=== PATIENT | male | born 1960 | race Caucasian/White ===

== ENCOUNTER → 2016-12-11 | Outpatient (REF) | payer BC ==
[2016-12-11 12:57] LABS: URIC ACID 6.4 MG/DL (3.5-7.2)
== END ==
LOC: M LAB REF 12:16
PROVIDERS: ATTEND Internal Medicine
DX: M10.9 Gout, unspecified (principal); Z98.84 Bariatric surgery status

== ENCOUNTER → 2017-10-26 | Outpatient (CLI) | payer BC | LOC: M WUC 11:50 | DX: S16.1XXA Strain of muscle, fascia and tendon at neck level, initial encounter (principal); X58.XXXA Exposure to other specified factors, initial encounter; Y92.89 Other specified places as the place of occurrence of the external cause | CPT/HCPCS: 72052 ==

== ENCOUNTER → 2018-08-19 | Outpatient (CLI) | payer BC | LOC: M WUC 11:50 | DX: M19.011 Primary osteoarthritis, right shoulder (principal); M25.711 Osteophyte, right shoulder; M25.511 Pain in right shoulder | CPT/HCPCS: 73030 ==

== ENCOUNTER → 2018-08-20 | Outpatient (CLI) | payer BC | LOC: M WUC 11:46 | DX: M50.322 Other cervical disc degeneration at C5-C6 level (principal); M50.323 Other cervical disc degeneration at C6-C7 level; M25.78 Osteophyte, vertebrae; M79.601 Pain in right arm; R20.0 Anesthesia of skin | CPT/HCPCS: 72052 ==

== ENCOUNTER → 2019-01-03 | Outpatient (REF) | payer BC ==
[2019-01-03 12:25] LABS: FERRITIN 139 NG/ML (26-388)
[2019-01-03 14:19] LABS: VITAMIN B12 LEVEL 767 PG/ML
[2019-01-03 14:20] LABS: FOLATE > 24.0 NG/ML
== END ==
LOC: M LAB REF 11:49
PROVIDERS: ATTEND Internal Medicine
DX: Z98.84 Bariatric surgery status (principal)

== ENCOUNTER → 2019-07-08 | Outpatient (REF) | payer BC | LOC: M LAB REF 12:28 | PROVIDERS: ATTEND Internal Medicine | DX: M10.9 Gout, unspecified (principal) ==

== ENCOUNTER → 2020-01-06 | Outpatient (REF) | payer BC ==
[2020-01-06 12:06] LABS: URIC ACID 7.6 MG/DL (3.5-7.2)
[2020-01-06 12:14] LABS: FOLATE 20.8 NG/ML
== END ==
LOC: M LAB REF 11:29
PROVIDERS: ATTEND Internal Medicine
DX: Z98.84 Bariatric surgery status (principal); M10.9 Gout, unspecified

== ENCOUNTER → 2021-01-08 | Outpatient (REF) | payer BC ==
[2021-01-08 17:53] LABS: URIC ACID 9.3 MG/DL (3.5-7.2)
[2021-01-08 18:02] LABS: VITAMIN B12 LEVEL 1041 PG/ML
[2021-01-08 18:04] LABS: FOLATE > 24.0 NG/ML
== END ==
LOC: M LAB REF 16:20
PROVIDERS: ATTEND Internal Medicine
DX: M10.9 Gout, unspecified (principal); Z98.84 Bariatric surgery status

== ENCOUNTER → 2021-04-22 | Outpatient (REF) | payer BC | LOC: M LAB REF 11:20 | PROVIDERS: ATTEND Internal Medicine | DX: M10.9 Gout, unspecified (principal) ==

== ENCOUNTER → 2021-05-12 | Outpatient (CLI) | payer BC ==
--- NOTE | 2021-05-18 00:17 | HOLTMON ---
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 No activity reported with the maximum heart rate. No SIGNIFICANT pause. Very rare isolated PACs. No supraventricular run. Rare isolated PVCs. No ventricular run. Symptoms: Palpitations, Shortness of breath, Chest pain. No associated significant arrhythmias. Electronically Signed on 05-18-2021 0:17:22 EDT by Denis Hartley
== END ==
LOC: M EKG 09:12
PROVIDERS: ATTEND Registered Nurse
DX: I48.0 Paroxysmal atrial fibrillation (principal); Z53.9 Procedure and treatment not carried out, unspecified reason

== ENCOUNTER → 2021-07-26 | Outpatient (REF) | payer BC | LOC: M LAB REF 12:25 | PROVIDERS: ATTEND Internal Medicine | DX: M10.9 Gout, unspecified (principal) ==

== ENCOUNTER → 2021-07-31 | Outpatient (CLI) | payer BC ==
--- NOTE | 2021-07-31 10:11 | REP ---
INDICATION: SHORTNESS OF BREATH COMPARISON: 08/05/2012 TECHNIQUE: PA and lateral. FINDINGS: The mediastinum and cardiac silhouette are normal. The lung bustillo are clear and without acute consolidation, effusion, or pneumothorax. The skeletal structures are intact and normal. IMPRESSION: No acute cardiopulmonary process. <Electronically signed by Jose E Regalado > 07/31/21 1007
== END ==
LOC: M WUC 08:58
PROVIDERS: ATTEND Internal Medicine
DX: R06.02 Shortness of breath (principal)

== ENCOUNTER → 2021-10-29 | Outpatient (REF) | payer OTHER, BC | LOC: M LAB REF 12:01 | PROVIDERS: ATTEND Internal Medicine | DX: M10.9 Gout, unspecified (principal) ==

== ENCOUNTER → 2022-07-18 | Outpatient (REF) | payer OTHER ==
[2022-07-18 13:51] LABS: FERRITIN 283 NG/ML (26-388)
[2022-07-18 14:24] LABS: VITAMIN B12 LEVEL > 2000 PG/ML
[2022-07-18 14:25] LABS: FOLATE > 24.0 NG/ML
== END ==
LOC: M LAB REF 12:10
PROVIDERS: ATTEND Internal Medicine
DX: Z98.84 Bariatric surgery status (principal)

== ENCOUNTER → 2023-01-20 | Outpatient (REF) | payer OTHER | LOC: M LAB REF 12:33 | PROVIDERS: ATTEND Internal Medicine | DX: M10.9 Gout, unspecified (principal) ==

== ENCOUNTER → 2023-03-25 | Outpatient (REF) | payer OTHER ==
[2023-03-25 17:54] LABS: URIC ACID 7.4 MG/DL (3.7-9.2)
[2023-03-25 17:56] LABS: C REACTIVE PROTEIN QUANTITATIV 1.8 MG/DL (<1.0)
== END ==
LOC: M LAB REF 16:38
PROVIDERS: ATTEND Internal Medicine
DX: M10.9 Gout, unspecified (principal)

== ENCOUNTER → 2023-07-03 | Outpatient (REF) | payer OTHER | LOC: M LAB REF 16:18 | PROVIDERS: ATTEND Internal Medicine | DX: M10.9 Gout, unspecified (principal) ==

== ENCOUNTER → 2023-10-06 | Outpatient (REF) | payer OTHER | LOC: M LAB REF 13:51 | PROVIDERS: ATTEND Internal Medicine | DX: M10.9 Gout, unspecified (principal) ==

== ENCOUNTER → 2024-01-28 | Outpatient (REF) | payer OTHER ==
[2024-01-28 13:28] LABS: URIC ACID 5.4 MG/DL (3.7-9.2)
[2024-01-28 13:35] LABS: FERRITIN 162.8 NG/ML (10.5-307.3)
[2024-01-28 13:36] LABS: FOLATE > 24.0 NG/ML (>5.4); VITAMIN B12 LEVEL 928 PG/ML (211-911)
== END ==
LOC: M LAB REF 12:34
PROVIDERS: ATTEND Internal Medicine
DX: M10.9 Gout, unspecified (principal); Z98.84 Bariatric surgery status

== ENCOUNTER → 2024-11-25 | Outpatient (REF) | payer MEDICARE | LOC: M LAB REF 11:56 | PROVIDERS: ATTEND Internal Medicine | DX: M10.9 Gout, unspecified (principal) ==

== ENCOUNTER → 2025-01-19 | Outpatient (REF) | payer MEDICARE ==
[2025-01-19 14:12] LABS: VITAMIN B12 LEVEL 832 PG/ML (211-911)
[2025-01-19 14:13] LABS: FERRITIN 147.5 NG/ML (10.5-307.3)
[2025-01-19 14:16] LABS: FOLATE > 24.0 NG/ML (>5.4)
== END ==
LOC: M LAB REF 13:03
PROVIDERS: ATTEND Internal Medicine
DX: K76.0 Fatty (change of) liver, not elsewhere classified (principal)